=== PATIENT | female | born 1955 | race Hispanic/Latino ===

== ENCOUNTER 2019-06-08 08:11 | Emergency (ER) | payer MEDICARE | END 2019-06-08 09:09 | disposition home or self-care (01) | LOC: EDH 08:11 | DX: N76.2 Acute vulvitis (principal); I10 Essential (primary) hypertension; E11.9 Type 2 diabetes mellitus without complications; Z90.49 Acquired absence of other specified parts of digestive tract; Z88.1 Allergy status to other antibiotic agents ==

== ENCOUNTER 2022-07-08 10:38 | Emergency (ER) | payer OTHER, MEDICARE ==
[~2022-07-08] VITALS: Ht 165.1 cm; Wt 72.6 kg
[2022-07-08 11:35] LABS: BASOPHILS % (AUTO) 0.1 % (0.0-5.0); EOSINOPHILS % (AUTO) 1.1 % (0.0-8.0); HEMATOCRIT 35.1 % (36-48); LYMPHOCYTES % (AUTO) 28.6 % (21.0-51.0); MEAN CORPUSCULAR HEMOGLOBIN 28.7 pg (27.0-33.0); MEAN CORPUSCULAR HGB CONC 32.8 g/dL (32.0-36.0); MEAN CORPUSCULAR VOLUME 87.5 fL (79-99); MONOCYTES % (AUTO) 10.6 % (3.0-13.0); NEUTROPHILS % (AUTO) 58.2 % (40.0-77.0); PLATELET COUNT (AUTO) 150 K/uL (130-400); RED BLOOD CELL COUNT(AUTO) 4.01 MIL/uL (4.00-5.50); RED CELL DISTRIBUTION WIDTH 12.6 % (11.0-15.5)
[2022-07-08 11:37] LABS: CARBON DIOXIDE 30 mmol/L (21-32); CHLORIDE 96 mmol/L (101-111); GLOMERULAR FILTR. RATE CALC 59 mL/min (>60); GLUCOSE,RANDOM 354 mg/dL (70-105); POTASSIUM 4.5 mmol/L (3.5-5.1); SODIUM SERUM 130 mmol/L (136-145); UREA NITROGEN, BLOOD 13 mg/dL (7-18)
[2022-07-08 11:41] LABS: ALANINE AMINOTRANSFERASE 52 U/L (12-78); ALBUMIN 2.7 g/dL (3.5-5.0); ASPARTATE AMINOTRANSFERASE 32 U/L (10-37); TOTAL PROTEIN, SERUM 7.8 g/dL (6.0-8.3)
[2022-07-08 11:42] LABS: LIPASE < 50 U/L (114-286)
[2022-07-08 13:13] LABS: APPEARANCE,URINE CLEAR (CLEAR); BILIRUBIN,URINE NEGATIVE (NEGATIVE); COLOR,URINE LIGHT-YELLOW (YELLOW); GLUCOSE, URINE (UA) >=1000 mg/dL (NEGATIVE); KETONES,URINE NEGATIVE (NEGATIVE); LEUKOCYTE ESTERASE ,URINE 25 Leu/uL (NEGATIVE); NITRATE,URINE NEGATIVE (NEGATIVE); OCCULT BLOOD,URINE NEGATIVE (NEGATIVE); PH,URINE 6.5 (5.0-8.0); PROTEIN,URINE NEGATIVE (NEGATIVE); UROBILINOGEN,URINE 0.2 mg/dL (0.2-1.0)
[2022-07-08 13:21] LABS: BACTERIA,URINE FEW /HPF (None Seen); MUCUS,URINE RARE LPF (None Seen); SQUAMOUS EPITHELIAL CELL,UR RARE /HPF (0-2); WBC,URINE 26-50 /HPF (0-1)
[2022-07-08] MEDS ORDERED: IOHEXOL 350 MG/ML 100ML INFUS..BTL IV ONE (14:52)
[2022-07-08] MEDS ORDERED: CEFTRIAXONE 1G VIAL IVP ONE (16:30)
[2022-07-08] MEDS ORDERED: CEFTRIAXONE 1G VIAL ONE (16:31)
[2022-07-08] MEDS ORDERED: GABA-529 PO (16:50)
[2022-07-08] MEDS ORDERED: MACR100 PO (16:50)
[2022-07-08 17:04] VITALS: BP 133/78
== END 2022-07-08 17:08 | disposition home or self-care (01) ==
LOC: EDH 10:38
DX: N39.0 Urinary tract infection, site not specified (principal); I10 Essential (primary) hypertension; E11.9 Type 2 diabetes mellitus without complications; E78.00 Pure hypercholesterolemia, unspecified; Z79.899 Other long term (current) drug therapy
CPT/HCPCS: 99285; 74177; 96374; 80053; 83690; 85025; 87077; 87088; 87186; 81001; 36415; J0696; Q9967

== ENCOUNTER 2022-09-21 20:03 | Observation (INO) | payer OTHER, MEDICARE ==
[~2022-09-21] VITALS: Ht 162.6 cm; Wt 83.8 kg
[~2022-09-21 20:03] MED LIST: GABA-529 PO; MACR100 PO
[2022-09-21] MEDS ORDERED: MORPHINE 4 MG SYG IVP ONE (20:30)
[2022-09-21] MEDS ORDERED: ONDANSETRON 4MG INJ IVP ONE (20:30)
[2022-09-21] MEDS ORDERED: 0.9%NACL 1000ML 1,000 ML IV ONE (20:30)
[2022-09-21 20:36] LABS: APPEARANCE,URINE CLEAR (CLEAR); BACTERIA,URINE MOD /HPF (None Seen); BILIRUBIN,URINE NEGATIVE (NEGATIVE); COLOR,URINE LIGHT-YELLOW (YELLOW); GLUCOSE, URINE (UA) >=1000 mg/dL (NEGATIVE); KETONES,URINE NEGATIVE (NEGATIVE); LEUKOCYTE ESTERASE ,URINE 250 Leu/uL (NEGATIVE); MUCUS,URINE RARE LPF (None Seen); NITRATE,URINE NEGATIVE (NEGATIVE); OCCULT BLOOD,URINE LARGE (NEGATIVE); PH,URINE 7.5 (5.0-8.0); PROTEIN,URINE NEGATIVE (NEGATIVE); RBC,URINE TNTC /HPF (0-1); SQUAMOUS EPITHELIAL CELL,UR RARE /HPF (0-2); UROBILINOGEN,URINE 0.2 mg/dL (0.2-1.0); WBC,URINE 51-100 /HPF (0-1); YEAST,URINE BUDDING FEW /HPF (None Seen)
[2022-09-21 20:37] LABS: BASOPHILS % (AUTO) 0.2 % (0.0-5.0); EOSINOPHILS % (AUTO) 1.6 % (0.0-8.0); HEMATOCRIT 37.3 % (36-48); LYMPHOCYTES % (AUTO) 37.5 % (21.0-51.0); MEAN CORPUSCULAR HEMOGLOBIN 27.9 pg (27.0-33.0); MEAN CORPUSCULAR HGB CONC 32.4 g/dL (32.0-36.0); MEAN CORPUSCULAR VOLUME 85.9 fL (79-99); NEUTROPHILS % (AUTO) 56.2 % (40.0-77.0); PLATELET COUNT (AUTO) 155 K/uL (130-400); RED BLOOD CELL COUNT(AUTO) 4.34 MIL/uL (4.00-5.50); RED CELL DISTRIBUTION WIDTH 14.8 % (11.0-15.5); WHITE BLOOD COUNT (AUTO) 5.8 K/uL (4.8-10.8)
[2022-09-21 20:48] LABS: CARBON DIOXIDE 27 mmol/L (21-32); CHLORIDE 101 mmol/L (101-111); CREATININE 1.3 mg/dL (0.5-1.5); GLOMERULAR FILTR. RATE CALC 45 mL/min (>90); GLUCOSE,RANDOM 158 mg/dL (70-105); POTASSIUM 4.1 mmol/L (3.5-5.1); SODIUM SERUM 134 mmol/L (136-145); UREA NITROGEN, BLOOD 21 mg/dL (7-18)
[2022-09-21 20:53] LABS: ALANINE AMINOTRANSFERASE 42 U/L (12-78); ALBUMIN 3.5 g/dL (3.5-5.0); ASPARTATE AMINOTRANSFERASE 27 U/L (10-37); LIPASE < 50 U/L (114-286); TOTAL PROTEIN, SERUM 8.6 g/dL (6.0-8.3)
[2022-09-21] MEDS ORDERED: IOHEXOL-350 75 ML VIAL IV ONE (21:10)
[2022-09-21] MEDS ORDERED: MEROPENEM 1 GM VIAL IVPB ONE (22:00)
[2022-09-21] MEDS ORDERED: PHENYLEPHRINE HCL 10 MG/ML 1ML VIAL IV ONE (22:48)
[2022-09-21] MEDS ORDERED: RENAL DOSE IV STA (22:57)
[2022-09-21] MEDS ORDERED: HYDRALAZINE 20MG/ML VIAL IV PRN (23:00)
[2022-09-21] MEDS ORDERED: DEXTROSE 50%-WATER 50 ML DISP.SYRIN IV PRN (23:00)
[2022-09-21] MEDS ORDERED: LACTULOSE 20 GM/30 ML UDCUP PO PRN (23:00)
[2022-09-21] MEDS ORDERED: TEMAZEPAM 15 MG CAPSULE PO PRN (23:00)
[2022-09-21] MEDS ORDERED: CLONIDINE HCL 0.1 MG TABLET PO PRN (23:00)
[2022-09-21] MEDS ORDERED: ALBUTEROL 0.083% 2.5 MG/3 ML INH IH PRN (23:00)
[2022-09-21] MEDS ORDERED: GLUCAGON 1MG KIT 1 MG ML IM PRN (23:00)
[2022-09-21] MEDS ORDERED: ONDANSETRON 4MG INJ IVP PRN (23:00)
[2022-09-21] MEDS: 0.9%NACL 1000ML 1,000 ML IV SCH (23:28)
[2022-09-21] MEDS: ACETAMINOPHEN 325 MG TAB PO PRN (23:28)
[2022-09-21] MEDS ORDERED: KETOROLAC 15MG/ML VIAL (15MG/ML) IV ONE (23:30)
[2022-09-22] MEDS ORDERED: VANCOMYCIN PROTOCOL PER PHARMACY IV SCH (00:21)
[2022-09-22] MEDS ORDERED: LACTATED RINGERS 1000ML IV STA (00:27)
[2022-09-22] MEDS ORDERED: VANCOMYCIN 1G/250ML KIT 250 ML IV ONE (01:00)
[2022-09-22] MEDS: INSULIN HUMULIN R 100 UNIT/ML 3ML SQ SCH ×4 (07:30→20:55)
[2022-09-22 07:45] LABS: BASOPHILS % (AUTO) 0.2 % (0.0-5.0); EOSINOPHILS % (AUTO) 0.1 % (0.0-8.0); HEMATOCRIT 33.7 % (36-48); LYMPHOCYTES % (AUTO) 5.8 % (21.0-51.0); MEAN CORPUSCULAR HEMOGLOBIN 27.9 pg (27.0-33.0); MEAN CORPUSCULAR HGB CONC 32.3 g/dL (32.0-36.0); MEAN CORPUSCULAR VOLUME 86.2 fL (79-99); MONOCYTES % (AUTO) 5.7 % (3.0-13.0); NEUTROPHILS % (AUTO) 86.6 % (40.0-77.0); PLATELET COUNT (AUTO) 114 K/uL (130-400); RED BLOOD CELL COUNT(AUTO) 3.91 MIL/uL (4.00-5.50); RED CELL DISTRIBUTION WIDTH 15.6 % (11.0-15.5); WHITE BLOOD COUNT (AUTO) 26.3 K/uL (4.8-10.8)
[2022-09-22 08:00] LABS: CREATININE 1.5 mg/dL (0.5-1.5); MAGNESIUM 1.6 mg/dL (1.80-2.40); PHOSPHORUS 3.7 mg/dL (2.5-4.9); POTASSIUM 4.8 mmol/L (3.5-5.1)
[2022-09-22] MEDS ORDERED: ALEN70TA80 PO (08:05)
[2022-09-22] MEDS ORDERED: DULO60CA64 PO (08:05)
[2022-09-22] MEDS ORDERED: TRAM50TA4 PO (08:05)
[2022-09-22] MEDS ORDERED: MONT-39 PO (08:05)
[2022-09-22] MEDS ORDERED: PIOG30TA70 PO (08:05)
[2022-09-22] MEDS ORDERED: SIMV-43 PO (08:05)
[2022-09-22] MEDS ORDERED: LISI40TA9 PO (08:05)
[2022-09-22] MEDS ORDERED: CYCL30DR OP (08:05)
[2022-09-22] MEDS ORDERED: MELO-108 PO (08:05)
[2022-09-22] MEDS ORDERED: EMPA25TA PO (08:05)
[2022-09-22] MEDS ORDERED: ACET-3573 PO (08:05)
[2022-09-22] MEDS ORDERED: OMEP20CA12 PO (08:05)
[2022-09-22] MEDS ORDERED: BROM3DRO OP (08:05)
[2022-09-22] MEDS: ENOXAPARIN SODIUM 40 MG/0.4 ML SYRINGE SQ SCH ×2 (09:00→09:32)
[2022-09-22] MEDS: MEROPENEM 1 GM VIAL IVPB SCH ×2 (09:31→20:53)
[2022-09-22] MEDS: DOCUSATE SODIUM 100 MG CAP PO SCH ×2 (09:32→20:53)
[2022-09-22] MEDS: PANTOPRAZOLE 40 MG TAB DR PO SCH (09:32)
[2022-09-22 09:49] LABS: BASOPHILS % (AUTO) 0.2 % (0.0-5.0); LYMPHOCYTES % (AUTO) 6.7 % (21.0-51.0); MEAN CORPUSCULAR HGB CONC 32.5 g/dL (32.0-36.0); MEAN CORPUSCULAR VOLUME 86.3 fL (79-99); MONOCYTES % (AUTO) 5.5 % (3.0-13.0); NEUTROPHILS % (AUTO) 86.6 % (40.0-77.0); PLATELET COUNT (AUTO) 106 K/uL (130-400); RED BLOOD CELL COUNT(AUTO) 3.71 MIL/uL (4.00-5.50); RED CELL DISTRIBUTION WIDTH 15.6 % (11.0-15.5); WHITE BLOOD COUNT (AUTO) 25.4 K/uL (4.8-10.8)
[2022-09-22] MEDS ORDERED: TRAMADOL HCL 50 MG TABLET PO PRN (11:00)
[2022-09-22] MEDS: 0.9%NACL 1000ML 1,000 ML IV SCH (12:51)
[2022-09-22] MEDS: GABAPENTIN 100 MG CAPSULE PO SCH (17:19)
[2022-09-22 19:00] VITALS: BP 118/57
[2022-09-22] MEDS: DULOXETINE HCL 30 MG CAP PO SCH (20:53)
[2022-09-22] MEDS: SIMVASTATIN 20 MG TABLET PO SCH (20:53)
[2022-09-22] MEDS: BROMFENAC SODIUM OP SCH (20:55)
[2022-09-22] MEDS: ACETAMINOPHEN 325 MG TAB PO PRN (21:03)
[2022-09-23] VITALS (7 sets, daily range): BP systolic 107–138; BP diastolic 52–67
[2022-09-23] MEDS: 0.9%NACL 1000ML 1,000 ML IV SCH ×2 (02:34→10:39)
[2022-09-23 05:06] LABS: ALBUMIN 2.1 g/dL (3.5-5.0); CREATININE 1.4 mg/dL (0.5-1.5); MAGNESIUM 1.8 mg/dL (1.80-2.40); POTASSIUM 3.8 mmol/L (3.5-5.1); TOTAL PROTEIN, SERUM 6.2 g/dL (6.0-8.3)
[2022-09-23] MEDS: INSULIN HUMULIN R 100 UNIT/ML 3ML SQ SCH ×4 (06:32→20:36)
[2022-09-23] MEDS ORDERED: NON-FORMULARY MEDICATION 1 EACH (Omeprazole 20 MG) PO SCH (09:00)
[2022-09-23] MEDS ORDERED: VANCOMYCIN 500MG+NS 100ML 100 ML IV SCH (09:00)
[2022-09-23] MEDS: PANTOPRAZOLE 40 MG TAB DR PO SCH (09:15)
[2022-09-23] MEDS: PIOGLITAZONE 30MG TAB PO SCH (09:15)
[2022-09-23] MEDS: MONTELUKAST SODIUM 10 MG TAB PO SCH (09:15)
[2022-09-23] MEDS: DULOXETINE HCL 30 MG CAP PO SCH ×2 (09:15→20:33)
[2022-09-23] MEDS: DOCUSATE SODIUM 100 MG CAP PO SCH ×2 (09:15→20:33)
[2022-09-23] MEDS: MELOXICAM 7.5 MG TABLET PO SCH (09:15)
[2022-09-23] MEDS: MEROPENEM 1 GM VIAL IVPB SCH ×2 (09:15→20:33)
[2022-09-23] MEDS: ENOXAPARIN SODIUM 40 MG/0.4 ML SYRINGE SQ SCH (09:16)
[2022-09-23 09:44] LABS: BASOPHILS % (AUTO) 0.1 % (0.0-5.0); EOSINOPHILS % (AUTO) 1.3 % (0.0-8.0); HEMATOCRIT 30.9 % (36-48); LYMPHOCYTES % (AUTO) 12.6 % (21.0-51.0); MEAN CORPUSCULAR HEMOGLOBIN 27.8 pg (27.0-33.0); MEAN CORPUSCULAR HGB CONC 31.1 g/dL (32.0-36.0); MEAN CORPUSCULAR VOLUME 89.6 fL (79-99); MONOCYTES % (AUTO) 9.3 % (3.0-13.0); NEUTROPHILS % (AUTO) 76.3 % (40.0-77.0); PLATELET COUNT (AUTO) 60 K/uL (130-400); RED BLOOD CELL COUNT(AUTO) 3.45 MIL/uL (4.00-5.50); RED CELL DISTRIBUTION WIDTH 15.9 % (11.0-15.5); WHITE BLOOD COUNT (AUTO) 10.9 K/uL (4.8-10.8)
[2022-09-23] MEDS ORDERED: POTASSIUM CHLORIDE 10% ELIXIR 20 MEQ/15 ML UDCUP PO PRN (12:30)
[2022-09-23] MEDS ORDERED: MAGNESIUM 2GM PREMIX 50ML 50 ML IV PRN (12:30)
[2022-09-23] MEDS ORDERED: KCL 20 MEQ ERTAB PO PRN (12:30)
[2022-09-23] MEDS ORDERED: POTASSIUM CHLORIDE 20MEQ/100ML 100 ML IV PRN (12:30)
[2022-09-23] MEDS: GABAPENTIN 100 MG CAPSULE PO SCH (16:58)
[2022-09-23] MEDS: SIMVASTATIN 20 MG TABLET PO SCH (20:33)
[2022-09-23] MEDS: BROMFENAC SODIUM OP SCH (20:37)
[2022-09-24] MEDS: 0.9%NACL 1000ML 1,000 ML IV SCH (01:50)
[2022-09-24 03:42] VITALS: BP 119/53
[2022-09-24 05:43] LABS: BASOPHILS % (AUTO) 0.1 % (0.0-5.0); EOSINOPHILS % (AUTO) 1.4 % (0.0-8.0); LYMPHOCYTES % (AUTO) 23.8 % (21.0-51.0); MEAN CORPUSCULAR HEMOGLOBIN 28.5 pg (27.0-33.0); MEAN CORPUSCULAR HGB CONC 32.8 g/dL (32.0-36.0); MEAN CORPUSCULAR VOLUME 87.1 fL (79-99); MONOCYTES % (AUTO) 8.4 % (3.0-13.0); NEUTROPHILS % (AUTO) 65.9 % (40.0-77.0); PLATELET COUNT (AUTO) 74 K/uL (130-400); RED BLOOD CELL COUNT(AUTO) 3.33 MIL/uL (4.00-5.50); RED CELL DISTRIBUTION WIDTH 15.4 % (11.0-15.5); WHITE BLOOD COUNT (AUTO) 7.6 K/uL (4.8-10.8)
[2022-09-24] MEDS: INSULIN HUMULIN R 100 UNIT/ML 3ML SQ SCH (05:50)
[2022-09-24 06:04] LABS: ALBUMIN 2.3 g/dL (3.5-5.0); MAGNESIUM 2.1 mg/dL (1.80-2.40); POTASSIUM 3.9 mmol/L (3.5-5.1); TOTAL PROTEIN, SERUM 6.4 g/dL (6.0-8.3)
[2022-09-24 08:00] VITALS: BP 148/64
[2022-09-24] MEDS ORDERED: AMOX1TAB16 PO (08:14)
[2022-09-24] MEDS: ENOXAPARIN SODIUM 40 MG/0.4 ML SYRINGE SQ SCH (09:00)
[2022-09-24] MEDS: MONTELUKAST SODIUM 10 MG TAB PO SCH (09:53)
[2022-09-24] MEDS: PANTOPRAZOLE 40 MG TAB DR PO SCH (09:53)
[2022-09-24] MEDS: MELOXICAM 7.5 MG TABLET PO SCH (09:53)
[2022-09-24] MEDS: PIOGLITAZONE 30MG TAB PO SCH (09:53)
[2022-09-24] MEDS: DOCUSATE SODIUM 100 MG CAP PO SCH (09:53)
[2022-09-24] MEDS: MEROPENEM 1 GM VIAL IVPB SCH (09:53)
[2022-09-24] MEDS: DULOXETINE HCL 30 MG CAP PO SCH (09:53)
== END 2022-09-24 12:45 | disposition home or self-care (01) ==
LOC: EDH 20:03 → EDHIP 22:36 → 3AH 09-22 19:09
PROVIDERS: ADMIT Internal Medicine Critical Care Medicine; ATTEND Internal Medicine Critical Care Medicine
DX: A41.9 Sepsis, unspecified organism (principal); N12 Tubulo-interstitial nephritis, not specified as acute or chronic; N39.0 Urinary tract infection, site not specified; N13.6 Pyonephrosis; E87.1 Hypo-osmolality and hyponatremia; I10 Essential (primary) hypertension; E11.9 Type 2 diabetes mellitus without complications; E78.5 Hyperlipidemia, unspecified; J45.909 Unspecified asthma, uncomplicated; G62.9 Polyneuropathy, unspecified; F32.A Depression, unspecified; K21.9 Gastro-esophageal reflux disease without esophagitis; M81.0 Age-related osteoporosis without current pathological fracture; K74.60 Unspecified cirrhosis of liver; E78.00 Pure hypercholesterolemia, unspecified; Z86.19 Personal history of other infectious and parasitic diseases; Z79.899 Other long term (current) drug therapy
CPT/HCPCS: 96361 ×3; 96365; 96375; 99285; 80053 ×3; 83690; 85025 ×5; 87040 ×2; 87077 ×2; 87088; 87186 ×2; 83605 ×2; 81001; 36415 ×4; 74177; 96366 ×3; 96367 ×2; 83735 ×3; 84100; 80048; 82948 ×2; 84145; 96372; G0378 ×61; J7030 ×2; J2405; J2270; J1885; J2370; J2185 ×6; Q9967; J3370; J1650 ×2; J1815 ×2; J3475

== ENCOUNTER 2022-12-10 05:38 | Inpatient (IN) | payer OTHER, MEDICARE ==
[2022-12-10] VITALS (7 sets, daily range): BP systolic 100–149; BP diastolic 40–62; PULSE 73–105; RESP 18–23; O2SAT 96–97
[~2022-12-10] VITALS: Ht 162.6 cm; Wt 85.5 kg
[~2022-12-10 05:38] MED LIST changes: +ACET-3573 PO; +ALEN70TA80 PO; +AMOX1TAB16 PO; +BROM3DRO OP; +CYCL30DR OP; +DULO60CA64 PO; +EMPA25TA PO; +LISI40TA9 PO; +MELO-108 PO; +MONT-39 PO; +OMEP20CA12 PO; +PIOG30TA70 PO; +SIMV-43 PO; +TRAM50TA4 PO
[2022-12-10] MEDS ORDERED: 0.9%NACL 1000ML 2,000 ML IV ONE (05:58)
[2022-12-10] MEDS: ONDANSETRON 4MG INJ ONE (06:14)
[2022-12-10 06:25] LABS: BASOPHILS % (AUTO) 0.1 % (0.0-5.0); EOSINOPHILS % (AUTO) 0.5 % (0.0-8.0); HEMATOCRIT 35.2 % (36-48); LYMPHOCYTES % (AUTO) 9.1 % (21.0-51.0); MEAN CORPUSCULAR HEMOGLOBIN 27.7 pg (27.0-33.0); MEAN CORPUSCULAR HGB CONC 32.1 g/dL (32.0-36.0); MEAN CORPUSCULAR VOLUME 86.3 fL (79-99); MONOCYTES % (AUTO) 1.2 % (3.0-13.0); NEUTROPHILS % (AUTO) 88.4 % (40.0-77.0); PLATELET COUNT (AUTO) 114 K/uL (130-400); RED BLOOD CELL COUNT(AUTO) 4.08 MIL/uL (4.00-5.50); RED CELL DISTRIBUTION WIDTH 15.5 % (11.0-15.5); WHITE BLOOD COUNT (AUTO) 9.2 K/uL (4.8-10.8)
[2022-12-10] MEDS ORDERED: ONDANSETRON 4MG INJ IVP ONE (06:30)
[2022-12-10] MEDS ORDERED: DIPHENOXYLATE HCL/ATROPINE 2.5/0.025 MG TAB PO ONE (06:30)
[2022-12-10 06:40] LABS: APPEARANCE,URINE CLEAR (CLEAR); BILIRUBIN,URINE NEGATIVE (NEGATIVE); COLOR,URINE LIGHT-YELLOW (YELLOW); GLUCOSE, URINE (UA) >=1000 mg/dL (NEGATIVE); KETONES,URINE NEGATIVE (NEGATIVE); LEUKOCYTE ESTERASE ,URINE 250 Leu/uL (NEGATIVE); NITRATE,URINE 2+ (NEGATIVE); OCCULT BLOOD,URINE NEGATIVE (NEGATIVE); PH,URINE 7.5 (5.0-8.0); PROTEIN,URINE 10 mg/dL (NEGATIVE); UROBILINOGEN,URINE 0.2 mg/dL (0.2-1.0)
[2022-12-10 06:42] LABS: BACTERIA,URINE MOD /HPF (None Seen); MUCUS,URINE RARE LPF (None Seen); SQUAMOUS EPITHELIAL CELL,UR RARE /HPF (0-2); WBC,URINE 26-50 /HPF (0-1)
[2022-12-10 06:59] LABS: ALANINE AMINOTRANSFERASE 42 U/L (12-78); ALBUMIN 3.2 g/dL (3.5-5.0); ASPARTATE AMINOTRANSFERASE 34 U/L (10-37); CARBON DIOXIDE 23 mmol/L (21-32); CHLORIDE 101 mmol/L (101-111); CREATININE 1.4 mg/dL (0.5-1.5); GLOMERULAR FILTR. RATE CALC 41 mL/min (>90); GLUCOSE,RANDOM 106 mg/dL (70-105); POTASSIUM 3.9 mmol/L (3.5-5.1); SODIUM SERUM 136 mmol/L (136-145); TOTAL PROTEIN, SERUM 8.1 g/dL (6.0-8.3); UREA NITROGEN, BLOOD 21 mg/dL (7-18)
[2022-12-10 07:10] LABS: LIPASE < 50 U/L (114-286)
[2022-12-10] MEDS ORDERED: 0.9%NACL 50ML IV ONE (08:00)
[2022-12-10] MEDS: ZOSYN 3.375GM +NS 50ML IVPB SCH ×2 (08:20→17:00)
[2022-12-10] MEDS ORDERED: HYDROCODONE/ACETAMINOPHEN 5/325 MG TAB PO PRN (09:30)
[2022-12-10] MEDS ORDERED: ZOLPIDEM TARTRATE 5 MG TAB PO PRN (09:30)
[2022-12-10] MEDS ORDERED: IPRATROPIUM/ALBUTEROL SULFATE 3 ML SOLUTION IH PRN (09:30)
[2022-12-10] MEDS ORDERED: DIPHENHYDRAMINE HCL 25 MG CAPSULE PO PRN (09:30)
[2022-12-10] MEDS ORDERED: CLONIDINE HCL 0.1 MG TABLET PO PRN (09:30)
[2022-12-10] MEDS ORDERED: BENZONATATE 100 MG CAPSULE PO PRN (09:30)
[2022-12-10] MEDS ORDERED: LACTULOSE 20 GM/30 ML UDCUP PO PRN (09:30)
[2022-12-10] MEDS ORDERED: GUAIFENESIN-DM 200/20 MG 10 ML PO PRN (09:30)
[2022-12-10] MEDS ORDERED: ONDANSETRON 4MG INJ IV PRN (09:30)
[2022-12-10] MEDS ORDERED: HYDROMORPHONE 0.5 MG SYG (0.5MG/0.5ML) IVP PRN (09:30)
[2022-12-10] MEDS ORDERED: ACETAMINOPHEN 325 MG TAB PO PRN ×2 (09:30)
[2022-12-10] MEDS ORDERED: BENZOCAINE/MENTH/CETYLPYRD CL 1 EACH LOZENGE MM PRN (09:30)
[2022-12-10] MEDS ORDERED: HYDRALAZINE 25MG TABLET PO PRN (09:30)
[2022-12-10] MEDS ORDERED: HYDRALAZINE 20MG/ML VIAL IV PRN (10:30)
[2022-12-10] MEDS: 0.9%NACL 1000ML 1,000 ML IV SCH ×2 (12:34→22:50)
[2022-12-10] MEDS ORDERED: ALBU0.63 IH (15:50)
[2022-12-10] MEDS ORDERED: IOHEXOL-350 75 ML VIAL IV ONE (17:53)
[2022-12-11 04:17] VITALS: BP 112/48; PULSE 87; RESP 18
[2022-12-11 04:53] LABS: HEMATOCRIT 30.6 % (36-48); MEAN CORPUSCULAR HEMOGLOBIN 27.6 pg (27.0-33.0); MEAN CORPUSCULAR HGB CONC 31.7 g/dL (32.0-36.0); MEAN CORPUSCULAR VOLUME 87.2 fL (79-99); RED BLOOD CELL COUNT(AUTO) 3.51 MIL/uL (4.00-5.50); RED CELL DISTRIBUTION WIDTH 16.1 % (11.0-15.5); WHITE BLOOD COUNT (AUTO) 11.9 K/uL (4.8-10.8)
[2022-12-11 05:08] LABS: CREATININE 1.5 mg/dL (0.5-1.5); MAGNESIUM 1.6 mg/dL (1.80-2.40); PHOSPHORUS 3.3 mg/dL (2.5-4.9); POTASSIUM 3.7 mmol/L (3.5-5.1)
[2022-12-11 08:00] VITALS: BP 139/60; PULSE 77; RESP 18; O2SAT 96
[2022-12-11] MEDS: ZOSYN 3.375GM +NS 50ML IVPB SCH ×2 (08:33)
[2022-12-11] MEDS: PANTOPRAZOLE 40 MG TAB DR PO SCH (08:34)
[2022-12-11] MEDS: ENOXAPARIN SODIUM 40 MG/0.4 ML SYRINGE SQ SCH (08:35)
[2022-12-11] MEDS ORDERED: NON-FORMULARY MEDICATION 1 EACH (Duloxetine HCl 60 MG) PO SCH (09:00)
[2022-12-11] MEDS ORDERED: POTASSIUM CHLORIDE 10% ELIXIR 20 MEQ/15 ML UDCUP PO PRN (09:00)
[2022-12-11] MEDS ORDERED: KCL 20 MEQ ERTAB PO PRN (09:00)
[2022-12-11] MEDS ORDERED: GLUCAGON 1MG KIT 1 MG ML IM PRN (09:00)
[2022-12-11] MEDS ORDERED: POTASSIUM CHLORIDE 20MEQ/100ML 100 ML IV PRN (09:00)
[2022-12-11] MEDS ORDERED: DEXTROSE 50%-WATER 50 ML DISP.SYRIN IV PRN (09:00)
[2022-12-11] MEDS ORDERED: ALBUTEROL SULFATE 0.63 MG IH SCH (11:00)
[2022-12-11 12:00] VITALS: BP 142/65; PULSE 88; RESP 18
[2022-12-11] MEDS: 0.9%NACL 1000ML 1,000 ML IV SCH ×2 (12:10→16:30)
[2022-12-11] MEDS: MONTELUKAST SODIUM 10 MG TAB PO SCH (12:50)
[2022-12-11] MEDS: LISINOPRIL 40 MG TABLET PO SCH (12:50)
[2022-12-11 14:08] LABS: INR 1.24 (0.85-1.15); PROTHROMBIN TIME 14.2 SEC (9.6-11.6)
[2022-12-11 16:00] VITALS: BP 158/74; PULSE 80; RESP 18
[2022-12-11] MEDS ORDERED: COMPOUND IV REFRIGERATED 1 EACH IVSOLN MISC PRN (17:00)
[2022-12-11] MEDS: GABAPENTIN 100 MG CAPSULE PO SCH (17:13)
[2022-12-11] MEDS: [UNRECOGNIZED DRUG - OTHER] IV SCH (17:13)
[2022-12-11] MEDS: MEROPENEM IV SCH (17:13)
[2022-12-11 20:00] VITALS: O2SAT 95
[2022-12-11] MEDS: SIMVASTATIN 20 MG TABLET PO SCH (20:39)
[2022-12-11] MEDS: DULOXETINE HCL 30 MG CAP PO SCH (20:39)
[2022-12-11 20:55] VITALS: BP 128/58; PULSE 92; RESP 18
[2022-12-12] VITALS (7 sets, daily range): BP systolic 107–157; BP diastolic 49–88; PULSE 71–86; RESP 16–20; O2SAT 95–96
[2022-12-12] MEDS: MEROPENEM IV SCH ×2 (05:19→17:42)
[2022-12-12] MEDS: [UNRECOGNIZED DRUG - OTHER] IV SCH ×2 (05:19→17:42)
[2022-12-12 05:46] LABS: HEMATOCRIT 30.1 % (36-48); MEAN CORPUSCULAR HEMOGLOBIN 27.7 pg (27.0-33.0); MEAN CORPUSCULAR HGB CONC 31.6 g/dL (32.0-36.0); MEAN CORPUSCULAR VOLUME 87.8 fL (79-99); RED BLOOD CELL COUNT(AUTO) 3.43 MIL/uL (4.00-5.50); RED CELL DISTRIBUTION WIDTH 15.7 % (11.0-15.5); WHITE BLOOD COUNT (AUTO) 8.8 K/uL (4.8-10.8)
[2022-12-12 06:10] LABS: CREATININE 1.1 mg/dL (0.5-1.5); MAGNESIUM 1.7 mg/dL (1.80-2.40); PHOSPHORUS 2.5 mg/dL (2.5-4.9); POTASSIUM 3.6 mmol/L (3.5-5.1)
[2022-12-12] MEDS: ENOXAPARIN SODIUM 40 MG/0.4 ML SYRINGE SQ SCH (08:59)
[2022-12-12] MEDS: DULOXETINE HCL 30 MG CAP PO SCH ×2 (09:17→20:43)
[2022-12-12] MEDS: PANTOPRAZOLE 40 MG TAB DR PO SCH (09:17)
[2022-12-12] MEDS: LISINOPRIL 40 MG TABLET PO SCH (09:17)
[2022-12-12] MEDS: MONTELUKAST SODIUM 10 MG TAB PO SCH (09:17)
[2022-12-12] MEDS: 0.9%NACL 1000ML 1,000 ML IV SCH ×2 (09:21→19:10)
[2022-12-12] MEDS: MAGNESIUM 2GM PREMIX 50ML 50 ML IV PRN (11:51)
[2022-12-12] MEDS: GABAPENTIN 100 MG CAPSULE PO SCH (17:42)
[2022-12-12] MEDS: SIMVASTATIN 20 MG TABLET PO SCH (20:43)
[2022-12-13 03:30] VITALS: BP 142/70; PULSE 82; RESP 19
[2022-12-13] MEDS: MEROPENEM IV SCH ×2 (05:17→16:07)
[2022-12-13] MEDS: [UNRECOGNIZED DRUG - OTHER] IV SCH ×2 (05:17→16:07)
[2022-12-13 06:46] LABS: HEMATOCRIT 28.1 % (36-48); MEAN CORPUSCULAR HEMOGLOBIN 27.8 pg (27.0-33.0); MEAN CORPUSCULAR VOLUME 86.7 fL (79-99); RED BLOOD CELL COUNT(AUTO) 3.24 MIL/uL (4.00-5.50); RED CELL DISTRIBUTION WIDTH 15.2 % (11.0-15.5); WHITE BLOOD COUNT (AUTO) 5.5 K/uL (4.8-10.8)
[2022-12-13 07:12] LABS: MAGNESIUM 1.8 mg/dL (1.80-2.40); PHOSPHORUS 2.4 mg/dL (2.5-4.9); POTASSIUM 3.9 mmol/L (3.5-5.1)
[2022-12-13 08:00] VITALS: BP 148/65; PULSE 61; RESP 18; O2SAT 96
[2022-12-13] MEDS: LISINOPRIL 40 MG TABLET PO SCH (08:57)
[2022-12-13] MEDS: PANTOPRAZOLE 40 MG TAB DR PO SCH (08:57)
[2022-12-13] MEDS: DULOXETINE HCL 30 MG CAP PO SCH ×2 (08:57→20:12)
[2022-12-13] MEDS: MONTELUKAST SODIUM 10 MG TAB PO SCH (08:57)
[2022-12-13] MEDS: ENOXAPARIN SODIUM 40 MG/0.4 ML SYRINGE SQ SCH (08:57)
[2022-12-13] MEDS: 0.9%NACL 1000ML 1,000 ML IV SCH ×2 (08:58→21:50)
[2022-12-13] MEDS: 0.9%NACL 10ML VIAL IV SCH ×2 (08:58→20:12)
[2022-12-13 12:00] VITALS: BP 152/71; PULSE 73; RESP 20
[2022-12-13 16:00] VITALS: BP 159/72; PULSE 76; RESP 18
[2022-12-13] MEDS: GABAPENTIN 100 MG CAPSULE PO SCH (16:08)
[2022-12-13] MEDS: INSULIN HUMULIN R 100 UNIT/ML 3ML SQ SCH ×2 (16:13→21:00)
[2022-12-13] MEDS: MAGNESIUM 2GM PREMIX 50ML 50 ML IV PRN (16:14)
[2022-12-13 20:00] VITALS: BP 133/71; PULSE 74; RESP 18; O2SAT 95
[2022-12-13] MEDS: SIMVASTATIN 20 MG TABLET PO SCH (20:12)
[2022-12-14] VITALS (8 sets, daily range): BP systolic 142–164; BP diastolic 62–101; PULSE 67–79; RESP 18–20; O2SAT 95
[2022-12-14] MEDS: [UNRECOGNIZED DRUG - OTHER] IV SCH ×2 (04:02→16:36)
[2022-12-14] MEDS: MEROPENEM IV SCH ×2 (04:02→16:36)
[2022-12-14 05:57] LABS: BASOPHILS % (AUTO) 0.2 % (0.0-5.0); EOSINOPHILS % (AUTO) 2.1 % (0.0-8.0); HEMATOCRIT 28.8 % (36-48); LYMPHOCYTES % (AUTO) 30.2 % (21.0-51.0); MEAN CORPUSCULAR HEMOGLOBIN 27.1 pg (27.0-33.0); MEAN CORPUSCULAR HGB CONC 31.9 g/dL (32.0-36.0); NEUTROPHILS % (AUTO) 56.6 % (40.0-77.0); PLATELET COUNT (AUTO) 98 K/uL (130-400); RED BLOOD CELL COUNT(AUTO) 3.39 MIL/uL (4.00-5.50); RED CELL DISTRIBUTION WIDTH 14.8 % (11.0-15.5); WHITE BLOOD COUNT (AUTO) 4.3 K/uL (4.8-10.8)
[2022-12-14] MEDS: INSULIN HUMULIN R 100 UNIT/ML 3ML SQ SCH ×4 (06:04→20:40)
[2022-12-14 06:14] LABS: ALBUMIN 2.4 g/dL (3.5-5.0); MAGNESIUM 1.9 mg/dL (1.80-2.40); POTASSIUM 3.5 mmol/L (3.5-5.1); TOTAL PROTEIN, SERUM 6.8 g/dL (6.0-8.3)
[2022-12-14] MEDS: 0.9%NACL 10ML VIAL IV SCH ×2 (09:07→20:34)
[2022-12-14] MEDS: MONTELUKAST SODIUM 10 MG TAB PO SCH (09:08)
[2022-12-14] MEDS: DULOXETINE HCL 30 MG CAP PO SCH ×2 (09:08→20:34)
[2022-12-14] MEDS: PANTOPRAZOLE 40 MG TAB DR PO SCH (09:08)
[2022-12-14] MEDS: ENOXAPARIN SODIUM 40 MG/0.4 ML SYRINGE SQ SCH (09:09)
[2022-12-14] MEDS: LISINOPRIL 40 MG TABLET PO SCH (09:09)
[2022-12-14] MEDS: 0.9%NACL 1000ML 1,000 ML IV SCH ×2 (09:09→23:40)
[2022-12-14] MEDS: MAGNESIUM 2GM PREMIX 50ML 50 ML IV PRN (09:10)
[2022-12-14] MEDS: GABAPENTIN 100 MG CAPSULE PO SCH (16:36)
[2022-12-14] MEDS: SIMVASTATIN 20 MG TABLET PO SCH (20:34)
[2022-12-15 04:26] VITALS: BP 159/64; PULSE 73; RESP 18
[2022-12-15] MEDS: [UNRECOGNIZED DRUG - OTHER] IV SCH (04:46)
[2022-12-15] MEDS: MEROPENEM IV SCH (04:46)
[2022-12-15 05:04] LABS: BASOPHILS % (AUTO) 0.2 % (0.0-5.0); LYMPHOCYTES % (AUTO) 33.6 % (21.0-51.0); MONOCYTES % (AUTO) 9.5 % (3.0-13.0); NEUTROPHILS % (AUTO) 52.9 % (40.0-77.0)
[2022-12-15 05:26] LABS: ALBUMIN 2.4 g/dL (3.5-5.0); CREATININE 0.9 mg/dL (0.5-1.5); MAGNESIUM 1.7 mg/dL (1.80-2.40); POTASSIUM 3.8 mmol/L (3.5-5.1); TOTAL PROTEIN, SERUM 6.9 g/dL (6.0-8.3)
[2022-12-15] MEDS: INSULIN HUMULIN R 100 UNIT/ML 3ML SQ SCH ×2 (06:17→11:39)
[2022-12-15 06:53] LABS: HEMATOCRIT 26.2 % (36-48); MEAN CORPUSCULAR HEMOGLOBIN 27.5 pg (27.0-33.0); MEAN CORPUSCULAR HGB CONC 32.4 g/dL (32.0-36.0); MEAN CORPUSCULAR VOLUME 84.8 fL (79-99); RED BLOOD CELL COUNT(AUTO) 3.09 MIL/uL (4.00-5.50); RED CELL DISTRIBUTION WIDTH 14.8 % (11.0-15.5); WHITE BLOOD COUNT (AUTO) 4.4 K/uL (4.8-10.8)
[2022-12-15 06:58] LABS: PLATELET COUNT (AUTO) 99 K/uL (130-400)
[2022-12-15 08:00] VITALS: BP 149/55; PULSE 67; RESP 17; O2SAT 95
[2022-12-15] MEDS ORDERED: MAGNESIUM 2GM PREMIX 50ML 50 ML IV PRN (08:00)
[2022-12-15] MEDS: MONTELUKAST SODIUM 10 MG TAB PO SCH (09:26)
[2022-12-15] MEDS: DULOXETINE HCL 30 MG CAP PO SCH (09:26)
[2022-12-15] MEDS: PANTOPRAZOLE 40 MG TAB DR PO SCH (09:26)
[2022-12-15] MEDS: LISINOPRIL 40 MG TABLET PO SCH (09:26)
[2022-12-15] MEDS: ENOXAPARIN SODIUM 40 MG/0.4 ML SYRINGE SQ SCH (09:27)
[2022-12-15] MEDS: 0.9%NACL 10ML VIAL IV SCH (09:28)
[2022-12-15 11:30] VITALS: BP 186/70; PULSE 67; RESP 16
[2022-12-15 13:20] VITALS: BP 157/69
== END 2022-12-15 14:05 | DRG 690 ==
LOC: EDH 05:38 → OBSVTOIN 09:05 → EDHIP 09:05 → 3AH 10:20 → 4CH 12-11 04:59
PROVIDERS: ADMIT Internal Medicine Critical Care Medicine; ATTEND Internal Medicine Critical Care Medicine
PROC: 02HV33Z Insertion of Infusion Device into Superior Vena Cava, Percutaneous Approach (ICD-10-PCS; principal; 2022-12-12)
DX: N39.0 Urinary tract infection, site not specified (principal); R78.81 Bacteremia; Z20.822 Contact with and (suspected) exposure to COVID-19; I12.9 Hypertensive chronic kidney disease with stage 1 through stage 4 chronic kidney disease, or unspecified chronic kidney disease; N18.30 Chronic kidney disease, stage 3 unspecified; E11.22 Type 2 diabetes mellitus with diabetic chronic kidney disease; K74.69 Other cirrhosis of liver; E78.5 Hyperlipidemia, unspecified; E11.42 Type 2 diabetes mellitus with diabetic polyneuropathy; B96.29 Other Escherichia coli [E. coli] as the cause of diseases classified elsewhere; K21.9 Gastro-esophageal reflux disease without esophagitis; B96.89 Other specified bacterial agents as the cause of diseases classified elsewhere; E78.00 Pure hypercholesterolemia, unspecified; M81.0 Age-related osteoporosis without current pathological fracture; F32.A Depression, unspecified; Z68.32 Body mass index [BMI] 32.0-32.9, adult; Z86.19 Personal history of other infectious and parasitic diseases; Z83.3 Family history of diabetes mellitus; Z82.49 Family history of ischemic heart disease and other diseases of the circulatory system
CPT/HCPCS: 36415; 36569; 71045; 74176; 74178; 80048; 80053; 81001; 82948; 83605; 83690; 83735; 84100; 84484; 85025; 85027; 85610; 87040; 87077; 87088; 87186; 87635; 87804; 93005; 94664; C1894; C9803; G0378; J1650; J1815; J2185; J2405; J2543; J3475; J7030; Q9967; G8980-CI; G8983-CI

== ENCOUNTER → 2024-09-03 | Outpatient (CLI) | payer OTHER, MEDICARE ==
[~2024-09-03] MED LIST changes: -ACET-3573 PO; +ALBU0.63 IH; -AMOX1TAB16 PO; -EMPA25TA PO; -GABA-529 PO; -LISI40TA9 PO; -MACR100 PO; -OMEP20CA12 PO; -PIOG30TA70 PO; -SIMV-43 PO; -TRAM50TA4 PO
[2024-09-03] MEDS: REGADENOSON 0.4 MG/5 ML PF SYG IVP ONE (11:01)
== END | disposition home or self-care (01) ==
LOC: SHCH 08:57
PROVIDERS: ATTEND Internal Medicine
DX: R06.00 Dyspnea, unspecified (principal); R94.31 Abnormal electrocardiogram [ECG] [EKG]
CPT/HCPCS: 78452; 93017; J2785; A9500 ×2

== ENCOUNTER → 2024-09-12 | Outpatient (CLI) | payer OTHER, MEDICARE ==
--- NOTE | 2024-09-13 09:27 | HMCSR ---
APPROVED REPORT EXAM: Two-dimensional and M-mode echocardiogram with Doppler and color Doppler. INDICATION ICD: R94.31 Abnormal electrocardiogram 2D Dimensions RVDd3.7 cmLVEF(%)58.5 (>50%)LVED Vol(simp.)65.0 mL IVSd1.2 (0.7-1.1cm)FS(%)31 %LVES Vol(simp.)21.0 mL LVDd4.1 (3.8-5.6cm)LA (2D)4.6 (1.6-4.0cm)LVEF(%, simp.)67 % PWd1.0 (0.7-1.1cm)Ao Root(2D)3.0 (2.0-3.7cm)LA ESV INDEX (BP)27.39 mL/m2 IVSs1.5 cmLVOT diam1.9 (1.8-2.4cm) LVDs2.8 (2.5-4.0cm)IVC diam1.9 cm PWs1.6 cm M-Mode Dimensions EPSS0.4 cm LA (MM)4.5 (1.6-4.0cm) Ao Root(MM)2.7 (2.0-3.7cm) Aortic Valve AoV Vmax1.4 m/Jenny Peak GR8.2 mmHgLVOT Vmax1.3 m/s AoV VTI0.2 mAo Mean GR4.8 mmHgLVOT VTI0.25 m ALISSON (VMAX)3.05 cm2Al P1/2T592 msAVA (VTI) 3.1 cm2 Mitral Valve MV E Vmax83.1 cm/sDECEL Rdgi226 ms MV A Jfud052.8 cm/sP 1/2 T36 ms E/A ratio0.7MVA (PHT)6.0 cm2 TDI E/E' Ghedsi53.8E/E' Lpbvfhr63.0 Medial E' Peak V5.27 cm/sLateral E' Peak V4.89 cm/s Pulmonary Valve PV Vmax1.1 m/sPV Mean GR2.9 mmHg PV Peak GR4.9 mmHg Tricuspid Valve TR Vmax2.7 m/sRAP (EST) 8 vmGpFATT99.0 mmHg TR Peak GR30.0 mmHg Left Ventricle The left ventricle is normal size. There is normal LV segmental wall motion. There is normal left matt tricular wall thickness. The LVEF is > 65%. Indeterminate diastolic dysfunction. Right Ventricle The right ventricle is normal size. The right ventricular systolic function is normal. Atria The left atrium size is normal. The right atrium size is normal. Aortic Valve The aortic valve is normal in structure. Trace of aortic regurgitation is present. There is no aortic valvular stenosis. Mitral Valve The mitral valve is mildly thickened and open well. Mild posterior annular calcification noted. Ther e is no mitral valve regurgitation noted. There is no mitral valve stenosis. Tricuspid Valve The tricuspid valve is normal in structure. There is trace of tricuspid valve regurgitation noted. Pulmonic Valve The pulmonary valve is normal in structure. There is no pulmonic valvular regurgitation. Great Vessels The aortic root is normal in size. IVC is not well visualized. Pericardium There is no pericardial effusion. Conclusion The LVEF is > 65%. Trace of aortic regurgitation is present.
== END | disposition home or self-care (01) ==
LOC: RAH 13:39
PROVIDERS: ATTEND Internal Medicine Cardiovascular Disease
DX: I34.0 Nonrheumatic mitral (valve) insufficiency (principal); R94.31 Abnormal electrocardiogram [ECG] [EKG]
CPT/HCPCS: 93306